=== PATIENT | female | born 2000 | race Two or more races ===

== ENCOUNTER 2021-04-29 15:00 | Inpatient (IN) | payer OTHER ==
[~2021-04-29] VITALS: Ht 162.6 cm; Wt 98.0 kg
[2021-05-18] MEDS ORDERED: IBUPROFEN400 MG PO (14:23)
== END 2021-05-18 17:27 | disposition home or self-care (01) | DRG 805 ==
LOC: OB/GYN 05-16 10:45 → LDR 05-16 10:45 → OB/GYN 05-16 13:32
PROVIDERS: ADMIT Obstetrics & Gynecology; ATTEND Obstetrics & Gynecology
PROC: 10E0XZZ Delivery of Products of Conception, External Approach (ICD-10-PCS; principal; 2021-05-16)
PROC: 0HQ9XZZ Repair Perineum Skin, External Approach (ICD-10-PCS; 2021-05-16)
PROC: 4A1HXFZ Monitoring of Products of Conception, Cardiac Rhythm, External Approach (ICD-10-PCS; 2021-05-16)
DX: O48.0 Post-term pregnancy (principal); O98.52 Other viral diseases complicating childbirth; U07.1 COVID-19; O70.0 First degree perineal laceration during delivery; Z37.0 Single live birth; Z3A.40 40 weeks gestation of pregnancy